=== PATIENT | female | born 1970 | race Caucasian/White ===

== ENCOUNTER → 2016-10-12 | Outpatient (CLI) | payer OTHER ==
[~2016-10-12] MED LIST: NO HOME MEDICATIONS
== END ==
LOC: MC.RAD 09:54
DX: D24.2 Benign neoplasm of left breast (principal)

== ENCOUNTER 2018-11-27 02:23 | Emergency (ER) | payer SELFPAY ==
[~2018-11-27] VITALS: Ht 165.1 cm; Wt 86.4 kg
[2018-11-27 02:28] VITALS: BP 150/70; TEMP 97.8
[2018-11-27 03:00] LABS: BASO # 0.1 (0.0-0.2); BASO % 0.9 % (0.0-2.0); EOS # 0.2 (0.0-0.7); EOS % 2.2 % (0-4.0); GRAN # 4.8 (1.4-6.5); GRAN % 70.3 % (42.2-75.2); HEMATOCRIT 39.2 % (37.0-47.0); HEMOGLOBIN 13.3 g/dl (12.5-16.0); LYMPH # 1.4 (1.2-3.4); LYMPH % 19.9 % (20.0-51.0); MEAN CELL VOLUME 89 fl (80.0-100.0); MEAN CORPUSCULAR HEMOGLOBIN 30 pg (27.0-31.0); MEAN CORPUSCULAR HGB CONC 34 g/dl (33.0-37.0); MEAN PLATELET VOLUME 9.8 fl (7.4-10.4); MONO # 0.4 (0.1-0.6); MONO % 6.3 % (1.7-9.3); PLATELET COUNT 206 K/mm3 (130-400); RED BLOOD COUNT 4.41 M/mm3 (4.10-5.30)
[2018-11-27 03:12] LABS: ALBUMIN 4.2 gm/dL (3.5-5.0); BILIRUBIN,TOTAL 0.8 mg/dL (0.0-1.0); CALCIUM 9.5 mg/dL (8.4-10.2); CREATININE, serum 0.66 mg/dL (0.52-1.25); TOTAL PROTEIN 7.7 gm/dL (6.4-8.2)
[2018-11-27 04:55] VITALS: PULSE 88
== END 2018-11-27 04:55 | disposition home or self-care (01) ==
LOC: COL.ER 02:23
PROVIDERS: Emergency Medicine
DX: M54.81 Occipital neuralgia (principal); Z98.890 Other specified postprocedural states
CPT/HCPCS: J0780; J1200; J7120

== ENCOUNTER → 2019-10-17 | Outpatient (CLI) | payer SELFPAY | LOC: COL.RAD 11:44 | DX: D25.9 Leiomyoma of uterus, unspecified (principal) ==

== ENCOUNTER → 2019-11-19 | Outpatient (CLI) | payer OTHER | LOC: MC.RAD 11:30 | DX: Z12.31 Encounter for screening mammogram for malignant neoplasm of breast (principal); Z98.82 Breast implant status ==

== ENCOUNTER → 2021-12-23 | Outpatient (CLI) | payer OTHER | LOC: MC.RAD 10:58 | DX: N63.32 Unspecified lump in axillary tail of the left breast (principal) ==